=== PATIENT | female | born 1945 | race Caucasian/White ===

== ENCOUNTER 2017-02-11 16:26 | Observation (INO) | payer MEDICARE ==
[~2017-02-11] VITALS: Ht 160 cm; Wt 72.5 kg
--- NOTE | ~2017-02-11 | ECH ---
Transthoracic Echocardiography Report (TTE) Demographics Patient Name KRISTINE BOWEN Date of Study 02/12/2017 Patient Number [id number] Visit Number [id number] Date of 1945 Room Number 402 Accession Number [id number] Gender Female Age 72 year(s) Referring King Bakari Sierra MD Yeast Washer Julia Castillo Physician Marisol Scott RDCS Physician Interpreting Mónica Pabon MD Coal Mine Inspector Physician Supervising Ordering Physician Marisol Scott MD/MLP Nurse Stress Anthropology Lecturer Conclusions Summary Technically good exam. The estimated left ventricular ejection fraction is 60-65%. Mildly dilated right ventricle with normal function. The right atrium is mild to moderately dilated. Mild-moderate mitral regurgitation by color Doppler. Procedure Type of Study TTE procedure:Echo Complete SF. Procedure Date Date: 02/12/2017 Start: 10:53 Technical Quality: Good visualization Indications:Abnormal ECG and Hypertension. Appropriate Use Criteria: 9 Height: 63 inches Weight: 164 pounds BSA: 1.78 m Rhythm: NSR HR: 78 bpm BP: 134/59 mmHg M-Mode/2D Measurements LV Diastolic Dimension: 4.04 cm LV Systolic Dimension: 2.72 cm LV Septum Diastolic: 0.93 cm LV PW Diastolic: 0.93 cm AO Root Dimension: 2.73 cm Cardiac Output: 6.84 l/min LA Dimension: 3.79 cm Cardiac Index: 3.84 l/min*m RV Diastolic Dimension: 3.24 cm LA volume index: 24 ml/m LVOT: 1.86 cm LVOT VTI: 32.28 cm RV Base: 4.6 cm LV Stroke volume: 87.67 ml RV Mid: 3.3 cm LV Stroke volume index: 49.25 ml/m TAPSE: 2.8 cm TDI-S': 15 cm/s Doppler Measurements AV Peak Velocity: 1.7 m/s MV Peak E-Wave: 1.06 m/s AV Peak Gradient: 11.56 mmHg MV Peak A-Wave: 0.94 m/s AV Mean Gradient: 6.85 mmHg MV E/A Ratio: 1.13 LVOT Peak Velocity: 1.55 m/s MV P1/2t: 68.1 msec AV Area (Continuity):2.31 cm MV Deceleration Time: 244.5 msec TR Velocity:2.74 m/s MV Area (PHT): 3.23 cm TR Gradient:30.03 mmHg PV Peak Velocity: 0.82 m/s Estimated RAP:3 mmHg PV Peak Gradient: 2.67 mmHg Estimated RVSP: 33 mmHg Estimated PASP: 33.03 mmHg E' Septal Velocity: 0.06 m/s A' Septal Velocity: 0.07 m/s E' Lateral Velocity: 0.11 m/s A' Lateral Velocity: 0.09 m/s RA Area: 23.58 cm Findings Left Ventricle Normal left ventricle size and function. Diastolic assessment reveals normal relaxation. Right Ventricle Mildly dilated right ventricle with normal function. Left Atrium Normal left atrial size. Right Atrium The right atrium is mild to moderately dilated. Mitral Valve Normal mitral valve structure and function. Mild-moderate mitral regurgitation by color Doppler. Aortic Valve The aortic valve is mildly sclerotic. Tricuspid Valve Normal tricuspid valve structure and function. Mild tricuspid regurgitation by color Doppler. Normal pulmonary pressures. Pulmonic Valve Normal pulmonic valve structure and function. Pericardial Effusion No evidence of pericardial effusion. Miscellaneous Visualized portions of the aortic root and ascending aorta appear normal in size. Pleural Effusion No evidence of pleural effusion. Signature
--- NOTE | ~2017-02-11 | CATH ---
Cardiac Diagnostic Report Demographics Patient Name ANDRÉS Belcher Gender Female Date of 1945 Age 72 year(s) Patient Number [id number] Date of Study 02/13/2017 Visit Number [id number] Room Number 402 Corporate ID Ht 160.02 cm Wt 74.39 kg Accession Number [id number] BSA 1.78 m kg/m Referring Juan Antonio Kline Primary Physician Physician Performing King Bakari Sierra MD Secondary Physician Physician Diagnostic King Bakari Sierra MD Assisting Physician Physician Interventional Physician Cloud [employer] Architect Physician Findings and Conclusions Diagnostic Findings and Conclusion Mild non-obstructive disease of pLAD. Elevated LV pressures with gradiant across the aortic valve noted. Normal EF of 70%. Diagnostic Recommendations Initiate Betablocker therapy. Consult with partners on LV pressures. Discharge home later today. Follow up with Dr. Dumont in 4-6 weeks. Procedure Description The patient was brought to the diagnostic cardiac catheterization laboratory in the fasting, non-sedated state. Informed consent was obtained in the written and verbal form after the risks and benefits were explained. The patient had no further questions and agreed to proceed. The planned puncture-incision site(s) were shaved and prepped with ChloraPrep and draped in the usual sterile manner. Conscious sedation, supplemental oxygen, and pain control medications were delivered by a registered nurse under physician guidance. Surface ECG rhythm, blood pressure measurement, and pulse oximetry were monitored throughout the procedure. Arterial access. The right radial access site was infiltrated with lidocaine. The right radial vessel was entered with the Seldinger technique. A 6F radial sheath was advanced into the vessel and used for catheter placement. Selective left coronary angiography. A 6F Tig catheter was advanced into the left coronary vessel ostium under Fluoroscopic guidance. Contrast was injected by hand. Images were obtained in multiple projections. Selective right coronary angiography. A 6F Tig catheter was advanced into the right coronary vessel ostium under fluoroscopic guidance. Contrast was injected by hand. Images were obtained in multiple projections. Left heart catheterization. A 6F pigtail catheter was advanced across the aortic valve to the left ventricle under fluoroscopic guidance. Resting hemodynamics were obtained. Arterial artery hemostasis was achieved using a TR band. The patient was transferred to a regular nursing floor via cart accompanied by a nurse. The patient left the laboratory in stable condition. Diagnostic Cath Status: Urgent Procedure Procedure Type Diagnostic procedure:Ventriculogram:, Left, Angiography:, Coronary Angios w/[facility] Indications: Chest discomfort, Hyperlipidemia, Hypertension, Peripheral vascular disease and Carotid artery disease. The procedure was explained in detail to the patient. Risks, complications and alternative treatments were reviewed. Written consent was obtained. Medications Reviewed with Patient prior to Procedure. Complications: No Complication. Angiographic Findings Dominance: Right Cardiac Arteries and Lesion Findings LMCA: Normal (0% Stenosis). LAD: Abnormal. Lesion on Prox LAD: 30% stenosis . LCx: Normal (0% Stenosis). RCA: Normal (0% Stenosis). Coronary Tree Procedure Data Procedure Date Date: 02/13/2017Start: 10:43 AMEnd: 11:24 AM Entry Locations - Percutaneous access was performed through the Right Radial artery (Primary location). A 6 Fr sheath was inserted. Hemostasis was successfully obtained using a TR band. Procedure Medications Order and Administration + + +-------+--------+ !Time !Medication !Dosage !Route ! + + +-------+--------+ !02/13/2017 !Versed !2 mg !I.V. ! !10:33 AM ! ! ! ! + + +-------+--------+ !02/13/2017 !Fentanyl !25 mcg !I.V. ! !10:33 AM ! ! ! ! + + +-------+--------+ !02/13/2017 !SF Radial Cocktail: 200mcg Nitro, 2.5 mg ! !I.A. ! !10:45 AM !Verapamil, 5000u Heparin ! ! ! + + +-------+--------+ !02/13/2017 !Oxygen !2 l/min!NC ! !10:52 AM ! ! ! ! + + +-------+--------+ Devices Used - A6F TIG CATHETERwas used for:LV Pressures. - A6F TIG CATHETERwas used for:Right coronary angiography. - ACATH 6FR FL3.5 CATHETER 100CMwas used for:Left coronary angiography. - ACATH 6FR PIG 145 110CM CATHETERwas used for:LV Pressures. Contrast Material - Isovue 77894 ml - Isovue 24731 ml Fluoroscopy Time: Diagnostic: 6:00 minutes. Total: 6:00 minutes. Fluoroscopy Dose: Diagnostic: 404 mGy. Total: 404 mGy. Estimated Blood Loss: 10 ml. Medical History Allergies - No known allergies. Risk Factors The patient risk factors include:peripheral arterial disease, hypercholesterolemia, hypertension, family history of premature CAD, last creatinine: 0.8 mg/dl, creatinine clearance: 75.75 ml/min, dyslipidemia and former tobacco use. Admission Data Admission Date: 02/11/2017 Admission Time: 04:26 PM Insurance Payors: Medicare. Clinical Evaluation Leading to Procedure Diagnosed on 02/13/2017 10:40 AM. - The patient's CAD presentation was assessed as: Unstable angina. - The patient's anginal syndrome during the past two weeks was assessed as: Class III according to the [place] [employer] Classification System (CCS). VA LV function assessed as:Normal. Ejection Fraction - 02/13/2017 - Method: LV gram. EF%: 70. LVA Segment Contractility 1 - Normal 3 - Mild 5 - Severe 7 - Dyskinesis hypokinesis hypokinesis 2 - 4 - Moderate 6 - Akinesis 8 - Aneurysm Hypokinesis hypokinesis Hemodynamics Condition: Rest O2 Consumption: Estimated: 167.59Heart Rate: 76 bpm Pressures (mmHg) +-----+ + !Site !Pressure ! +-----+ + !LV !224/0 ,0 ! +-----+ + !AO !101/47 (65) ! +-----+ + !LV !244/0 ,2 ! +-----+ + !AO !95/47 (65) ! +-----+ + !LV !168/2 ,12 ! +-----+ + !LV !103/5 ,19 ! +-----+ + !LV !104/4 ,9 ! +-----+ + !AO !95/41 (61) ! +-----+ + !LV !152/4 ,12 ! +-----+ + Valve Gradients and Areas + +---------+---------+---------+ +---------+ + !Valve !Peak !Mean !Area !Index !Flow !Source ! + +---------+---------+---------+ +---------+ + !Aortic !55 !32 ! ! ! ! ! + +---------+---------+---------+ +---------+ + !Aortic !55 !32 ! ! ! ! ! + +---------+---------+---------+ +---------+ + Shunts Oxygen Values O2 Consumption 167.59 Discharge Data Discharge Date: 02/13/2017 Hospital Status: Inpatient Signatures
[2017-02-14] MEDS ORDERED: THERAPEUTIC MUL1 TAB PO (17:27)
[2017-02-14] MEDS ORDERED: ZOCOR80 MG PO (17:27)
[2017-02-14] MEDS ORDERED: HYZAAR 50-12.51 EACH PO (17:27)
[2017-02-14] MEDS ORDERED: PROTONIX40 MG PO (17:27)
[2017-02-14] MEDS ORDERED: ASA CHILDREN'S81 MG PO (17:27)
[2017-02-14] MEDS ORDERED: FISH OIL 1,2001 EACH PO (17:28)
[2017-02-14] MEDS ORDERED: COREG DPS6.25 MG PO (17:28)
[2017-02-14] MEDS ORDERED: VITAMIN E400 UNIT PO (17:28)
[2017-02-14] MEDS ORDERED: TYLENOL DPS325 MG PO (17:28)
[2017-02-14] MEDS ORDERED: MAALOX DPS30 ML PO (17:28)
--- NOTE | 2017-02-25 07:37 | HP ---
ADMIT: 02/11/2017 RM/LOC: 402 [facility] MR#: [id number] 26[address] [facility] [address] [place], [place] [address] KRISTINE BOWEN [address] [place] [address] History and Physical SEX: F AGE: 72 : 1945 DATE OF SERVICE: CHIEF COMPLAINT: Chest pain, actually now resolved. HPI: The patient is a 72-year-old white female, normally cared for by Dr. Vazquez in our office, who presented to clinic today with some chest pain that has been going on over the weekend. I think, her symptoms started on February 07. She was getting substernal chest pain, felt like an elephant was sitting on her chest, it radiated up into her neck and shoulders. She states she came to our emergency room, though there is no record of that in our system and was only placed on the monitor and never had an EKG and was given a GI cocktail and then released. She went home and continued to feel some chest pain off and on through the week and that would be worse especially when doing activities like mowing the lawn. She actually got sick to her stomach with it and felt quite short of breath and felt like her heart was racing off and on. She said it gradually started feeling better yesterday through the day and then now today only felt a little twinge in the shower, but has not noticed any other symptoms. By the time she got to clinic, she was completely asymptomatic and vitals and exam were also fairly normal. Given her suspicious history, though we did evaluate with an EKG and enzymes and her EKG showed Q-waves with some flipped Ts and looked suspicious for changes from an HI. Unfortunately, she has not had an EKG since 2009 and it is definitely a change from then. She was admitted for further workup and evaluation. PAST MEDICAL HISTORY: The patient has had a normal stress test in 2009. She has had an echo for a heart murmur also in 2010. No prior history of coronary artery disease. Has had an arrhythmia that she had an ablation for done in 2009. She also has hypertension and hyperlipidemia. PAST SURGICAL HISTORY: Include a hysterectomy for uterine cancer, breast lumpectomy, tonsillectomy and adenoidectomy, and colonoscopy. MEDICATIONS: 1. Hyzaar 50/12.5, 1 tablet daily. 2. Ranitidine 150 mg daily. 3. Simvastatin 80 mg at bedtime. 4. Vitamin E daily. ALLERGIES: NO KNOWN DRUG ALLERGIES. FAMILY HISTORY: Significant for coronary artery disease in several first- degree family members along with hypertension, diabetes, and stroke. SOCIAL HISTORY: The patient is a former smoker, quitting 40 years ago. She does drink some caffeine daily. No drug use and just occasional social alcohol use. REVIEW OF SYSTEMS: RESPIRATORY: No cough, but she was having shortness of breath with her chest pain. ADMIT: 02/11/2017 RM/LOC: 402 [facility] MR#: [id number] [facility] [address] [address] KRISTINE BOWEN [address] [place] [address] History and Physical SEX: F AGE: 72 : 1945 NEURO: Denies any numbness, tingling, or focal weakness. CARDIAC: Having some palpitations and occasionally gets some swelling in her legs. HEAD: Denies history of migraines, but has had some frequent headaches with this chest pain. Vision is normal with her glasses. Has had cataract surgery on the right in the past. : Denies any dysuria, frequency. She is post menopausal. MUSCULOSKELETAL: Denies any joint aches or pains. GI: Has had nausea with this chest pain. No vomiting or diarrhea. SKIN: Denies any rashes. PHYSICAL EXAMINATION: VITAL SIGNS: The patient is afebrile. Blood pressure 156/61, pulse 81, respirations 18, and sats 97% on room air. HEENT: Head is atraumatic, normocephalic. Sclerae are clear. Pupils are round and reactive. Nares are patent. Oropharynx looks moist without lesions. NECK: Supple with no lymphadenopathy or thyromegaly. HEART: Regular in rate and rhythm with a soft 2/6 right upper sternal border systolic murmur. LUNGS: Sound clear to auscultation bilaterally with good air flow. No wheezes or rales. ABDOMEN: Soft, nondistended, nontender with good bowel sounds. EXTREMITIES: Have no edema. She has 2+ dorsalis pedis pulses. No focal neurologic deficits are noted. No skin lesions. LABS: CBC and CMP in the office were normal except mildly low potassium at 3.4. Her CK was 101. Troponin I was slightly elevated at 0.042 and her D- dimer was normal. Chest x-ray looked normal. ASSESSMENT: 1. Recent chest pain suspicious for unstable angina. 2. Abnormal EKG in the office with Q-waves in the inferior leads. 3. Gastroesophageal reflux. 4. Hypertension. PLAN: We will admit and recheck cardiac enzymes through the night. We will get an echocardiogram and a Cardiology consult. With her slightly elevated troponin, we will go ahead and start her on a heparin drip. We will do aspirin as well. Await any further recommendations from Cardiology. Sonia Damon MD/ klaudia JOB #: [id number] CC: Real Romano, Attending Physician Real Romano, Family Physician
--- NOTE | 2017-03-04 15:33 | CO ---
ADMIT: 02/11/2017 RM/LOC: 402 [facility] MR#: [id number] [address] [address] KRISTINE BOWEN [address] [place] [address] Consultation SEX: F AGE: 72 : 1945 DATE OF CONSULTATION: 02/12/2017 ATTENDING PHYSICIAN: Real Romano CONSULTING PHYSICIAN: Bakari Dumont MD Reason for consult: Chest Pain HISTORY OF PRESENT ILLNESS: The patient presented to the clinic with chest pain that had been going on since the weekend. The onset of the chest pain began on 02/27/2017. She described the pain as a substernal pressure, that radiated to the neck and shoulders. It occurred while she was mowing her lawn. Severity rating was 10/10 on initial presentation while she was mowing, but it decreased in severity after she sat down and rested. Associated symptoms with initial event included shortness of breath, heart racing and palpitations, nausea, and diaphoresis. The patient did have some substernal pressure over Saturday and Saturday,which was at a lesser severity than initial chest pain episode, but she did not present to the clinic until 02/11/2017. At this point in time, she was asymptomatic. An EKG was done, revealing Q-waves that were suspicious for prior infarction in the inferior leads. It also showed left ventricular hypertrophy. Cardiac consult is being done due to the chest pain and its suspicious cardiac origin. The patient's cardiovascular risk factor survey reveals a prior smoking history of 20 pack years, although she did quit 35 years ago approximately. The patient also admits to a history of high blood pressure and high cholesterol. She also has a strong family history of ischemic heart disease as well as congestive heart failure. The patient also has a personal history of [id number] carotid artery disease of the left internal carotid artery as well as peripheral artery disease of the left lower extremity. The patient also admits to a personal history of a left severe substernal pressure that occurs with activities and disappears when she rest, making suspicious for stable coronary artery disease. The patient's last stress test was done in 2009 and was normal. The patient's last echocardiogram was done in 2009 revealing an ejection fraction of 63% and diastolic dysfunction as well as mild tricuspid regurgitation. ALLERGIES: NO KNOWN DRUG ALLERGIES. MEDICATIONS: 1. Aspirin 81 mg p.o. daily. 2. Hyzaar 50/12.5 p.o. daily. 3. Pepcid 20 mg p.o. daily. 4. Zocor 40 mg p.o. daily. 5. Heparin 250 mL IV. PAST MEDICAL HISTORY: Dyslipidemia, hypertension, gastroesophageal reflux disease, history of SVT, peripheral artery disease, and [id number] carotid artery disease. PAST SURGICAL HISTORY: Previous surgeries: Hysterectomy, breast lumpectomy, ADMIT: 02/11/2017 RM/LOC: 402 [facility] MR#: [id number] [address] [place] [id number] KRISTINE BOWEN [facility] [place] [address] Consultation SEX: F AGE: 72 : 1945 tonsillectomy, and adenoidectomy, and right cataract removal. SOCIAL HISTORY: The patient does not follow a special diet. She does not use caffeine or alcohol. She denies history of drug use or abuse. Occupation: Retired. Marital status: . FAMILY HISTORY: The patient has a pertinent family history for heart disease. Her father had congestive heart failure, brother had congestive heart failure and myocardial infarction, mom had a myocardial infarction and sister had a myocardial infarction. The patient has a positive family history for diabetes in mom and brother. Positive cancer history in sister with breast cancer. REVIEW OF SYSTEMS: GENERAL: The patient denies tiring easily. She denies recent fever or chills. She does admit to hot flashes and sweats that she believes is due to medication. She does report a recent weight gain of approximately 4 pounds prior to admission. EYES: The patient denies history of glaucoma or vision loss, however, she does admit to blurry vision at times, this has become much better since she had her cataract removal. THROAT, MOUTH, AND EARS: The patient denies any problems with nose, throat, hearing, or ears. She does admit to sinus troubles with allergies. RESPIRATORY: The patient denies history of asthma, wheezing, emphysema, bronchitis, chronic cough, bloody sputum, snoring, or waking more than once at night. She does states that she is tired first thing in the morning. GASTROINTESTINAL: The patient does have a history of heartburn and acid reflux. She denies dysphagia, hiatal hernia, stomach ulcer, bleeding from the rectum or bloody stools, gallbladder problems, or liver disease. GENITOURINARY TRACT: The patient denies history of blood in urine, problems with urination, urinary tract infections, bladder stones, kidney stones, or kidney failure. MUSCULOSKELETAL: The patient denies history of arthritis or gout. She does admit to muscle pain. ENDOCRINE: The patient denies history of thyroid problems. HEMATOLOGY AND LYMPHATIC: The patient denies history of anemia or bleeding problems. She does have a personal history of uterine cancer, requiring hysterectomy. NEUROLOGIC: The patient denies history of chronic headaches, stroke, or seizure disorder. She does admit to numbness and tingling in her bilateral lower and upper extremities at times. PSYCHIATRIC: The patient denies history of mental illness, depression, or anxiety problem. PHYSICAL EXAMINATION: VITAL SIGNS: Temperature afebrile. Pulse 61, respiratory rate 16, blood pressure 134/59, and O2 saturation 98% on room air. GENERAL: Alert and oriented x3. No acute distress. ADMIT: 02/11/2017 RM/LOC: 402 [facility] MR#: [id number] [address] [address] KRISTINE BOWEN [address] [place] [address] [place] [address] Consultation SEX: F AGE: 72 : 1945 HEENT: Normocephalic and atraumatic. No JVD. HEART: Regular rate and rhythm. No murmurs, clicks, rubs, or gallops. LUNGS: Clear to auscultation. ABDOMEN: Soft and nontender. Positive bowel sounds. EXTREMITIES: No edema. LABORATORY DATA: Sodium 142, potassium 3.7, chloride 109, CO2 of 28, BUN 14, creatinine 0.8, and glucose 89. White blood cell count 8.1, hemoglobin 14.1. TSH 5.44. CK-MB 0.9. Troponin 0.054. BNP 183. D-dimer 0.26. EKG, Q-waves suspicious for prior inferior infarction, left ventricular hypertrophy. ASSESSMENT: 1. Chest pain. 2. Elevated troponin. PLAN: We will plan for heart cath in tomorrow a.m. Her symptoms are very suspicious for coronary artery disease with cardiac enzymes normal. It is okay to do as outpatient, but Dr. Romano strongly recommend the patient stay inpatient until tomorrow morning when heart cath is scheduled, so that is the plan. Echo is pending. CHANCE Montemayor Student / Bakari Dumont MD / klaudia JOB #: [id number] CC: Real Romano, Attending Physician Real Romano, Family Physician
== END 2017-02-13 16:51 | disposition home or self-care (01) ==
LOC: 4PCU 16:26
PROVIDERS: ADMIT Family Medicine
DX: R07.9 Chest pain, unspecified (principal); K21.9 Gastro-esophageal reflux disease without esophagitis; I10 Essential (primary) hypertension; E78.5 Hyperlipidemia, unspecified; I25.10 Atherosclerotic heart disease of native coronary artery without angina pectoris; R79.89 Other specified abnormal findings of blood chemistry; Z79.899 Other long term (current) drug therapy; Z90.710 Acquired absence of both cervix and uterus; Z98.890 Other specified postprocedural states; Z87.891 Personal history of nicotine dependence; Z79.82 Long term (current) use of aspirin; Z98.42 Cataract extraction status, left eye